=== PATIENT | female | born 1955 | race Caucasian/White ===

== ENCOUNTER 2021-09-14 05:50 | Emergency (ER) | payer OTHER ==
[~2021-09-14] VITALS: Ht 165.1 cm; Wt 72.1 kg
[2021-09-14 05:56] VITALS: BP 152/78
--- NOTE | 2021-09-14 06:01 | NUR ---
Ambulatory to bed 12.
--- NOTE | 2021-09-14 06:16 | NUR ---
65 YO/F BIB SIG OTHER W C/O DIZZNESS X1 DAY UPON MOVEMENT, + DRY COUGH XSEVERAL MONTHS. PT REPORTS TAKING DELSYM X2 DAYS AGO FOR THE DRY COUGH WHICH PT RELATES IT TO POSSIBLY CAUSING THE DIZZYNESS. PT DENIES ANY LOC, PAIN, CHEST PAIN, SOB, BLURRY VISION, FEVERS, CHILLS, N/V/D. PT LAYING IN BED LOCKED IN LOWEST POSITION W X2 SIDERAIL UP FOR SAFETY. VSS. BREATHING EVEN AND UNLABRED. NAD NOTED, WILLC OTNINUE TO MONITOR. SIG OTHER AT BEDSIDE. PMH:HTN, THYROID, HIGH CHOL ALLERGIES: DENIES Addendum: 09/14/21 at 0732 by MEDGREGORIOK nih [id number].
[2021-09-14] MEDS ORDERED: ONDANSETRON 4 MG ODT PO ONE (06:45)
[2021-09-14] MEDS ORDERED: MECLIZINE 25 MG TAB PO ONE (06:45)
--- NOTE | 2021-09-14 07:29 | NUR ---
Pt report given to MORRIS LAMB. Transfer of care at this time.
[2021-09-14 07:57] LABS: ALBUMIN 3.8 g/dL (3.4-5.0); CARBON DIOXIDE 26.7 mmol/L (21-32); CREATININE 0.5 mg/dL (0.6-1.3); POTASSIUM 3.7 mmol/L (3.5-5.1); TOTAL BILIRUBIN 0.2 mg/dL (0.0-1.0)
[2021-09-14 08:21] VITALS: BP 124/70
--- NOTE | 2021-09-14 08:24 | NUR ---
Patient discharged with v/s stable. Written and verbal after care instructions given and explained. Patient verbalized understanding. Ambulatory with steady gait. All questions addressed prior to discharge. Advised to follow up with PMD.
== END 2021-09-14 08:24 | disposition home or self-care (01) ==
LOC: MED 05:50
DX: R42 Dizziness and giddiness (principal); R05.9 Cough, unspecified; I10 Essential (primary) hypertension; R11.0 Nausea; E07.9 Disorder of thyroid, unspecified; Z90.49 Acquired absence of other specified parts of digestive tract; Z90.710 Acquired absence of both cervix and uterus; Z98.890 Other specified postprocedural states
CPT/HCPCS: 36415; 80053; 83880; 84484; 93005; 96361; 96374; 96375; 99284; J8597; Q0162